=== PATIENT | female | born 1980 | race Caucasian/White ===

== ENCOUNTER 2019-01-04 18:00 | Emergency (ER) | payer SELFPAY ==
[~2019-01-04] VITALS: Ht 160 cm; Wt 67.4 kg
[2019-01-04 20:46] VITALS: BP 123/86
== END 2019-01-04 20:47 | disposition home or self-care (01) ==
LOC: ED 19:04
DX: F32.0 Major depressive disorder, single episode, mild (principal); F41.1 Generalized anxiety disorder; E89.0 Postprocedural hypothyroidism; F43.11 Post-traumatic stress disorder, acute
CPT/HCPCS: 36415; 80053; 80307; 81001; 84439; 84443; 84703; 85025; 99284